=== PATIENT | female | born 1975 | race Caucasian/White ===

== ENCOUNTER 2018-08-10 16:07 | Inpatient (IN) ==
[2018-08-10] MEDS ORDERED: Dextrose 50% in Water 50 ML Vial IV.PUSH PRN (18:59)
[2018-08-11] MEDS: Insulin NovoLOG Aspart Correctional Sugar Inj SQ SCH ×4 (01:33→17:38)
[2018-08-11] MEDS ORDERED: Enoxaparin Inj 80 MG/0.8 ML Syringe SQ SCH (06:00)
[2018-08-11 06:56] LABS: Activated Partial Thrombo Time 31.2 sec (23.4-31.7)
--- NOTE | 2018-08-11 08:37 | P.HPIM ---
History of Present Illness Service: Hospitalist Primary Care Physician: Richard Ohara DO Chief Complaint: Shortness of breath, cough History of Present Illness: Ms. Kruger is a pleasant 42-year-old female with a history of uncontrolled diabetes, diverticulitis who presents to the emergency department on 08/10/2018 3-week long cough as well as 1 day duration of chest pain, palpitation and shortness of breath. Patient started experiencing cough approximately 3 weeks ago. During this time she went to [place] and came back driving to [place] on August 04. She did not have any fever or chills. However, yesterday she started feeling sharp chest pain as well as shortness of breath. She also felt her heart rate was up. Currently she came to the emergency department for an evaluation. ED evaluation indicates pulmonary embolism. Patient was a started on Lovenox. Patient denies changes in bowel or bladder habits. No abdominal pain. Past medical history: Diabetes mellitus, diverticulitis Past surgical history: Back surgery Social history: Patient smokes half a pack a day. Denies using illicit drugs or alcohol. Family history: Mother side of the family has a history of cancer as well as blood clots. Father with diabetes mellitus, brain aneurysm Inpatient Certification Inpatient Certification: I certify that the inpatient services were ordered in accordance with Medicare regulations governing the order. This includes certification that hospital inpatient services are reasonable and necessary and in the case of services not specified as inpatient-only under 42 CFR 419.22(n), that they are appropriately provided as inpatient services in accordance to with the 2-midnight benchmark under 43 CFR 412.3(e) Estimated Total Length of Stay (Days): 2 Plans for Post Hospital Care: Home Review of Systems Review of Systems: all other systems reviewed are negative [facility] Social History Social History Substance History: No History of Abuse Second Hand Smoke Exposure: No Smoking Status: Current every day smoker Tobacco Type: Cigarettes How Often Do You Have a Drink Containing Alcohol: Never Immunization History Tetanus Immunization: Unsure Hx Influenza Vaccine This Season: No Medications and Allergies Allergies Allergy/AdvReac Type Severity Reaction Status Date / Time No Known Allergies Allergy Verified 08/10/18 16:22 Home Medications Medication Instructions Recorded Confirmed Type No Known Home Medications 08/10/18 08/10/18 History Active Medications: Active Medications Albuterol (Albuterol Neb (Prn)) 1.25 mg NEB Q4HR NEB PRN PRN Reason: sob Dextrose (D50w Vial) 50 ml IV.PUSH UNSCH PRN PRN Reason: PER HYPOGLYCEMIA PROTOCOL Enoxaparin Sodium (Lovenox Inj) 80 mg SQ Q12HR [facility] Last Admin: 08/11/18 06:28 Dose: 80 mg Glucagon (Glucagon Inj) 1 mg OTHER PRN PRN PRN Reason: for Hypoglycemia Protocol Insulin Aspart (Novolog Insulin Correctional Sugar Inj) 0 unit SQ ACHS [facility]; Protocol Last Admin: 08/11/18 01:33 Dose: Not Given Physical Exam Vital signs: Vital Signs 08/10/18 22:00 08/10/18 23:21 08/11/18 00:00 Temperature 98.5 F 97.6 F Pulse Rate 82 95 H Respiratory Rate 18 18 Blood Pressure 136/75 120/76 Pulse Oximetry 96 96 96 08/11/18 04:00 Temperature 97.2 F L Pulse Rate 96 H Respiratory Rate Blood Pressure 132/78 Pulse Oximetry 95 Intake & Output 08/10/18 08/11/18 08/11/18 18:59 06:59 18:59 Intake Total 480 / 480 Balance 480 / 480 Weight 83.3 kg Intake: Oral 480 / 480 Other: # Voids 4 Weight On Admission 83.3 kg Narrative: GENERAL: This is a well-nourished, well-developed patient, in no apparent distress. SKIN: No rashes, ecchymoses or lesions. Warm and dry. HEAD: Atraumatic. Normocephalic. No temporal or scalp tenderness. EYES: Pupils equal round and reactive. No injection or drainage. ENT: Nose without bleeding, purulent drainage or septal hematoma. Airway patent. NECK: Trachea midline. No lymphadenopathy. Supple, nontender, no meningeal signs. CARDIOVASCULAR: Regular rate and rhythm without murmurs, gallops, or rubs. No JVD. RESPIRATORY: Clear to auscultation. Breath sounds equal bilaterally. No wheezes , rales, or rhonchi. GASTROINTESTINAL: Abdomen soft, non-tender, nondistended. No guarding. MUSCULOSKELETAL: Extremities without clubbing, cyanosis, or edema. NEUROLOGICAL: Awake and alert. Cranial nerves II through XII intact. No focal neurological deficits. Normal speech. Caprini VTE Risk Assessment Caprini VTE Risk Assessment: Moderate/High Risk (score >= 2) Caprini Risk Assessment Model: Point Value = 1 Point Value = 2 Point Value = 3 Point Value = 5 Age 41-60 Minor surgery BMI > 25 kg/m2 Swollen legs Varicose veins or History of unexplained or recurrent spontaneous Oral contraceptives or hormone replacement Sepsis (< 1 month) Serious lung disease, including pneumonia (< 1 month) Abnormal pulmonary function Acute myocardial infarction Congestive heart failure (< 1 month) History of inflammatory bowel disease Medical patient at bed rest Age 61-74 Arthroscopic surgery Major open surgery (> 45 min) Laparoscopic surgery (> 45 min) Malignancy Confined to bed (> 72 hours) Immobilizing plaster cast Central venous access Age >= 75 History of VTE Family history of VTE Factor V Leiden Prothrombin [id number] Lupus anticoagulant Anticardiolipin antibodies Elevated serum homocysteine Heparin-induced thrombocytopenia Other congenital or acquired thrombophilia Stroke (< 1 month) Elective arthroplasty Hip, pelvis, or leg fracture Acute spinal cord injury (< 1 month) Prophylaxis Regimen: Total Risk Factor Score Risk Level Prophylaxis Regimen 0-1 Low Early ambulation 2 Moderate Order ONE of the following: *Sequential Compression Device (SCD) *Heparin 5000 units SQ BID 3-4 Higher Order ONE of the following medications: *Heparin 5000 units SQ TID *Enoxaparin/Lovenox 40 mg SQ daily (WT < 150 kg, CrCl > 30 mL/min) *Enoxaparin/Lovenox 30 mg SQ daily (WT < 150 kg, CrCl > 10-29 mL/min) *Enoxaparin/Lovenox 30 mg SQ BID (WT < 150 kg, CrCl > 30 mL/min) AND/OR *Sequential Compression Device (SCD) 5 or more Highest Order ONE of the following medications: *Heparin 5000 units SQ TID (Preferred with Epidurals) *Enoxaparin/Lovenox 40 mg SQ daily (WT < 150 kg, CrCl > 30 mL/min) *Enoxaparin/Lovenox 30 mg SQ daily (WT < 150 kg, CrCl > 10-29 mL/min) *Enoxaparin/Lovenox 30 mg SQ BID (WT < 150 kg, CrCl > 30 mL/min) AND *Sequential Compression Device (SCD) Assessment and Plan Plan Ms. Kruger is a pleasant 42-year-old female with a history of diabetes mellitus, diverticulitis who presents to the emergency department on 08/10/2018 due to shortness of breath, cough. She started having sharp chest pain as well as shortness of breath and palpitation yesterday morning. ED workup indicates pulmonary embolism. Acute pulmonary embolism Likely provoked due to long distance driving. Patient received Lovenox. Will start patient on apixaban this afternoon. Patient is currently on room air and not requiring any pain medications. We recommend patient to continue apixaban for at least 6 months. Likely bronchitis No radiological evidence of pneumonia. Patient's symptoms have been going on for over 3 weeks. We will start patient on azithromycin as well as steroid. DuoNeb while patient is in the hospital. Diabetes mellitus Patient cannot tolerate metformin. Currently on insulin sliding scale protocol in the hospital. Upon discharge, will start patient on glimepiride. Patient is to follow-up with PCP very closely. Hemoglobin A1c 10.0. She may need insulin in the near future. Full code. Lovenox full dose. H&P: Quality VTE Deep Vein Thrombosis/Pulmonary Embolism Present on Admission: No
[2018-08-11] MEDS ORDERED: Azithromycin 250 MG Tablet PO ONE (10:00)
[2018-08-11 12:22] VITALS: BP 163/89; TEMP 98.1
[2018-08-11 19:26] VITALS: PULSE 78; RESP 18; O2SAT 97
== END 2018-08-11 20:16 | disposition home or self-care (01) | DRG 176 ==
LOC: PHEDDLT 16:07 → PH3 21:50
PROVIDERS: ADMIT Hospitalist; ATTEND Hospitalist
CPT/HCPCS: 71010; 71045; 71275; 80053; 82948; 82962; 83036; 83520; 83735; 83880; 84484; 84703; 85025; 85379; 85610; 85730; 87040; 90761; 90772; 90774; 90782; 90784; 93005; 94640; 94664; 94665; 96361; 96372; 96374; 99291; C8952; J1650; J1815; J2930; J7030; J7506; J7512; Q9967